=== PATIENT | male | born 1945 | race Caucasian/White ===

== ENCOUNTER 2016-11-28 17:34 | Emergency (ER) | payer MEDICARE, OTHER ==
[~2016-11-28 17:34] MED LIST: BEDSMIS4; BLOOD PRESSURE PILL PO; COLA100C PO; LOVA40TA PO; PERC10TA27 PO; PERI8.6T PO; WALKER ROLLING
[2016-11-28 17:36] VITALS: BP 174/81; PULSE 89; RESP 15; TEMP 98.4; O2SAT 98
--- NOTE | 2016-11-28 17:56 | PD ---
HPI Chief Complaint: Laceration/Skin Injury Time Seen by Provider: 17:55 Travel History International Travel<30 days: No Contact w/Intl Traveler<30days: No Traveled to known affect area: No History of Present Illness HPI 71yo M presents to the ER for c/o of left wrist laceration from a sprocket that hit him in the wrist very hard. Denies loss of sensation, paraesthesias, decreased ROM, decreased strength to effected extremity and hand. Unknown tetanus status. Has not taken any mediations for symptoms management. Talat anticoagulants. Has no other medical complaints. PFSH Past Medical History Cardiovascular Problems: Yes (htn on meds) High Cholesterol: Yes Hypertension: Yes Social History Alcohol Use: Yes (beer, occasionally) Tobacco Use: No (1989) Substance Use: No Allergies-Medications (Allergen,Severity, Reaction): Coded Allergies: No Known Allergies (Unverified , 11/28/16) Reported Meds & Prescriptions Reported Meds & Active Scripts Active Tylenol-Codeine #3 (Acetaminophen-Codeine) 300-30 mg Tab 1 Tab PO Q4H PRN Keflex (Cephalexin) 500 Mg Cap 500 Mg PO Q8H 7 Days Reported [Blood Pressure Pill] PO DAILY Review of Systems Except as stated in HPI: all other systems reviewed are Neg Physical Exam Narrative GENERAL: Well-nourished, well-developed male patient, in no acute distress SKIN: Warm and dry. Volar aspect of left wrist/ distal forearm with approximately 3.5 cm laceration; bleeding controlled. Left upper extremity is supple and non-tense with 2+ radial pulse and sensory intact; full range of motion to all fingers and full online advertising analyst strength. HEAD: Atraumatic. Normocephalic. EYES: Pupils equal and round. No scleral icterus. No injection or drainage. ENT: Mucosa pink and moist. Airway patent. NECK: Trachea midline. CARDIOVASCULAR: Regular rate. RESPIRATORY: No accessory muscle use. GASTROINTESTINAL: Flat. MUSCULOSKELETAL: No obvious deformities. No clubbing. No cyanosis. No edema. NEUROLOGICAL: Awake and alert. Oriented 3. No obvious cranial nerve deficits. Motor grossly within normal limits. Normal speech. PSYCHIATRIC: Appropriate mood and affect; insight and judgment normal. Data Data Last Documented VS Vital Signs Date Time Temp Pulse Resp B/P (MAP) Pulse Ox O2 Delivery O2 Flow Rate FiO2 11/28/16 23:50 11/28/16 20:26 18 11/28/16 17:36 98.4 89 98 Orders Orders Forearm (2vws) (11/28/16 17:53) Acetaminophen (Tylenol) (11/28/16 18:00) Lidocaine 1% Inj (50 Ml) (Xylocaine 1% I (11/28/16 18:00) Tetanus/Diphtheria Tox Adult (Tetanus/Di (11/28/16 18:00) Lidocai-Epi 1%-1:100,000 Inj (Xylocaine- (11/28/16 18:00) Ct Wrist W/O Contrast (11/28/16 ) Cefazolin 2 Gm Premix (Ancef 2 Gm Premix (11/28/16 23:00) Splint Or Brace Apply/Monitor (11/28/16 23:02) Acetamin-Hydrocod 325-5 Mg ([place] 5-325 (11/28/16 23:15) Ondansetron Odt (Zofran Odt) (11/28/16 23:15) Fiberglass Sugartong Sp Ad Arm (11/29/16 ) Sling Cradle Arm (11/29/16 ) MDM Medical Decision Making Medical Screen Exam Complete: Yes Emergency Medical Condition: Yes Medical Record Reviewed: Yes Differential Diagnosis laceration, contusion, fracture Narrative Course 71-year-old male with laceration to the volar aspect of his left distal forearm/ wrist. Tetanus updated in the ER. See my procedure note for laceration repair. Left forearm x-ray ordered. 1899: Left forearm x-ray pending. Report given to Derick Saunders, PAC at change of shift. See his note for patient final disposition. Procedures Procedure Narrative LACERATION LOCATION: Left distal forearm volar aspect LENGTH: 3-1/2 cm NUMBER OF STITCHES/MALORIE: 10 simple interrupted sutures REPAIR: The area of the laceration was prepped with Betadine and sterilely draped. The laceration was infiltrated with 1% lidocaine. The wound was copiously irrigated and explored without evidence of foreign body, tendon injury or neurovascular injury. The wound was closed using 4-0 Prolene. This was a single layer repair. A sterile dressing was applied. The patient was advised to keep the dressing clean and dry. Patient tolerated the procedure well. Diagnosis Primary Impression: Laceration of left forearm Qualified Codes: S51.812A - Laceration without foreign body of left forearm, initial encounter Referrals: Primary Care Physician Patient Instructions: Acute Wound Care (DC), Care For Your Stitches (ED), General Instructions, Laceration (ED) Additional Instructions: Keep area clean and dry Limit left arm activity to decrease risk of sutures coming undone Ibuprofen as directed and as needed for pain and inflammation; may alternate ibuprofen with the Lortabs for pain (Lortab contains Tylenol so do not take Tylenol with the Lortab, unless you take them 6-8 hours apart) Ice pack to area as needed to decrease pain Return to the emergency department or follow-up with her primary care provider in 10-14 days for suture removal Follow up with primary care provider within 2-4 days Return to the emergency department immediately with worsening of symptoms, particularly if reddened streaks up or down the affected extremity from the suture site, fever, numbness/tingling in the affected extremity, loss of sensation in the affected extremity, severe swelling of the affected Med/Other Pt SpecificInfo: Prescription(s) given Scripts Acetaminophen-Codeine (Tylenol-Codeine #3) 300-30 mg Tab 1 TAB PO Q4H Y for PAIN, #20 TAB 0 Refills Prov: Anna Costello MD 11/28/16 Cephalexin (Keflex) 500 Mg Cap 500 MG PO Q8H for Infection for 7 Days, CAP 0 Refills Prov: Kimberlyn Barrientos 11/28/16 Disposition: 01 DISCHARGE HOME Condition: Stable Kimberlyn Barrientos Nov 28, 2016 17:56
[2016-11-28] MEDS ORDERED: ACETAMINOPHEN 325 MG TAB PO ONE (18:00)
[2016-11-28] MEDS ORDERED: TETANUS/DIPHTHERIA TOXOID ADULT 0.5 ML VIAL IM ONE (18:00)
[2016-11-28] MEDS ORDERED: LIDOCAINE 1%/EPINEPHrine 1:100,000 SOLN 30 ML VIAL ONE (18:00)
[2016-11-28] MEDS ORDERED: LIDOCAINE HCL 1% 50 ML VIAL INFIL ONE (18:00)
[2016-11-28] MEDS ORDERED: CEPH-460 PO (18:54)
[2016-11-28] MEDS ORDERED: HYDR-3533 PO (18:57)
--- NOTE | 2016-11-28 20:04 | RADRPT ---
EXAM DATE/TIME: 11/28/2016 18:07 [facility] COMPARISON: No previous studies available for comparison. INDICATIONS : Left forearm laceration from tool. MEDICAL HISTORY : None. SURGICAL HISTORY : None. ENCOUNTER: Initial ACUITY: 1 day PAIN SCORE: 7/10 LOCATION: Left posterior forearm. FINDINGS: There is air in the soft tissues over the dorsal and lateral aspect of the wrist. Ther e does appear to be some fragmentation seen at the lateral aspect of the distal ulna. This could be from an acute injury or be related to hypertrophic change if this is not related to the patient's brittney saranya injury. There does appear to be prominent hypertrophic change at the first carpometacarpal join t. The elbow and wrist joints are grossly normally aligned. CONCLUSION: 1. Air in the soft tissues from laceration seen at the dorsal and lateral aspect of the wrist. 2. Fragmentation seen at the distal lateral aspect of the ulna. This could be from acute injury or b e the sequela of hypertrophic change if this is not an area of acute clinical concern. 3. Chronic change at the lateral wrist at the first carpometacarpal region. Davon Townsend MD on November 28, 2016 at 19:04 Board Certified Radiologist. This report was verified electronically.
--- NOTE | 2016-11-28 20:15 | PD ---
Physical Exam Time Seen by Provider: 20:05 Data Data Last Documented VS Vital Signs Date Time Temp Pulse Resp B/P (MAP) Pulse Ox O2 Delivery O2 Flow Rate FiO2 11/28/16 20:26 18 11/28/16 17:36 98.4 89 174/81 (112) 98 Orders Orders Forearm (2vws) (11/28/16 17:53) Acetaminophen (Tylenol) (11/28/16 18:00) Lidocaine 1% Inj (50 Ml) (Xylocaine 1% I (11/28/16 18:00) Tetanus/Diphtheria Tox Adult (Tetanus/Di (11/28/16 18:00) Lidocai-Epi 1%-1:100,000 Inj (Xylocaine- (11/28/16 18:00) Ct Wrist W/O Contrast (11/28/16 ) Cefazolin 2 Gm Premix (Ancef 2 Gm Premix (11/28/16 23:00) Splint Or Brace Apply/Monitor (11/28/16 23:02) Acetamin-Hydrocod 325-5 Mg ([employer] 5-325 (11/28/16 23:15) Ondansetron Odt (Zofran Odt) (11/28/16 23:15) MDM Medical Record Reviewed: Yes Supervised Visit with MARY: No Narrative Course I assumed care of this patient pending results from x-ray of the left forearm. Please see previous providers note for complete history of present illness as well as information on the laceration repair. 2010: The x-ray results have resulted revealing fracture fragment of the distal lateral ulna which could be acute versus chronic per the radiologist read. On examination he does have a laceration overlying the dorsal aspect of the left wrist as well as some mild tenderness in the region of the x-ray findings. Therefore a CT of the wrist has been ordered to assess the acuity of this bony injury. CT of the wrist reveals acute fracturing at the dorsal distal lateral ulna. Therefore the orthopedic physician dock operations supervisor will be paged. I discussed with the on-call orthopedist Dr. Musa who would like to see the patient in his office in the next few days and recommends oral antibiotics, sugar tong splint. The patient will be given a dose of IV Ancef prior to discharge. Diagnosis Primary Impression: Laceration of left forearm Qualified Codes: S51.812A - Laceration without foreign body of left forearm, initial encounter Additional Impression: Open fracture of left wrist Qualified Codes: S62.102B - Fracture of unspecified carpal bone, left wrist, initial encounter for open fracture Referrals: Salas Musa MD Primary Care Physician Patient Instructions: General Instructions, Care For Your Stitches (ED), Laceration (ED), Acute Wound Care (DC) Departure Forms: Tests/Procedures Additional Instruction: Follow-up with Dr. Musa in the next 3-4 days, call his office to make an appointment. Do not remove the splint. Tylenol with Codeine for pain. Do not drive or drink alcohol when using this medication. Keflex as prescribed. Return for any acutely new or worsening symptoms. Med/Other Pt SpecificInfo: Prescription(s) given, Wound Care, Orthopedic Instructions Scripts Acetaminophen-Codeine (Tylenol-Codeine #3) 300-30 mg Tab 1 TAB PO Q4H Y for PAIN, #20 TAB 0 Refills Prov: Anna Costello MD 11/28/16 Cephalexin (Keflex) 500 Mg Cap 500 MG PO Q8H for Infection for 7 Days, CAP 0 Refills Prov: Kimberlyn Barrientos 11/28/16 Disposition: 01 DISCHARGE HOME Condition: Stable Derick Saunders Nov 28, 2016 20:15
[2016-11-28 20:26] VITALS: RESP 18
--- NOTE | 2016-11-28 22:44 | RADRPT ---
EXAM DATE/TIME: 11/28/2016 20:51 [facility] COMPARISON: FOREARM LEFT (2VWS), November 28, 2016, 18:07. INDICATIONS : Laceration to left arm, struck by garage door motor. RADIATION DOSE: 6.34 CTDIvol (mGy) MEDICAL HISTORY : Hypertension. SURGICAL HISTORY : None. ENCOUNTER: Initial ACUITY: 1 day PAIN SCALE: 7/10 LOCATION: Left posterior forearm TECHNIQUE: Volumetric scanning of the wrist was performed. Using automated exposure control and adjustment of the mA and/or kV according to patient size, radiation dose was kept as low as reasonabl y achievable to obtain optimal diagnostic quality images. DICOM format image data is available elec tronically for review and comparison. FINDINGS: There is fracturing of the dorsal lateral aspect of the distal ulna. No other fracture is seen. There is prominent chronic degenerative change at the lateral carpal region and at the first carpometacarpal joint. There is extensive air within the soft tissues seen dorsally and laterally. There are small calcific densities or foreign material seen over the soft tissues just dorsal to the distal ulna. CONCLUSION: 1. Acute fracturing at the distal dorsal lateral ulna. The remaining bony structures are intact. 2. Prominent chronic change at the lateral aspect of the wrist and at the first carpometacarpal joint . 3. Extensive air within the soft tissues from laceration posteriorly. There is also some calcific de nsity or foreign material seen in the soft tissues over the dorsal medial wrist region. Davon Townsend MD on November 28, 2016 at 22:12 Board Certified Radiologist. This report was verified electronically.
[2016-11-28] MEDS ORDERED: ceFAZolin 2 GM PREMIX 50 ML IV ONE (23:00)
[2016-11-28] MEDS ORDERED: TYLETAB34 PO (23:05)
[2016-11-28] MEDS ORDERED: ACETAMINOPHEN/HYDROcodone 325 MG/5 MG TAB PO ONE (23:15)
[2016-11-28] MEDS ORDERED: ONDANSETRON ODT 4 MG TAB PO ONE (23:15)
== END 2016-11-28 23:53 | disposition home or self-care (01) ==
LOC: NEPK 17:34
DX: S62.102B Fracture of unspecified carpal bone, left wrist, initial encounter for open fracture (principal); S51.812A Laceration without foreign body of left forearm, initial encounter; W22.8XXA Striking against or struck by other objects, initial encounter; Z23 Encounter for immunization
CPT/HCPCS: 12002; 73090; 73200; 90471; 90714; 96365; 99285; J0690

== ENCOUNTER 2016-12-10 08:15 | Emergency (ER) | payer OTHER ==
[~2016-12-10] VITALS: Ht 175.3 cm; Wt 75.0 kg
[~2016-12-10 08:15] MED LIST changes: -BEDSMIS4; +CEPH-460 PO; -COLA100C PO; -LOVA40TA PO; -PERC10TA27 PO; -PERI8.6T PO; +TYLETAB34 PO; -WALKER ROLLING
[2016-12-10 08:17] VITALS: BP 132/68; PULSE 88; RESP 20; TEMP 97.7; O2SAT 97
[2016-12-10] MEDS ORDERED: BACT800T5 PO (08:44)
[2016-12-10] MEDS ORDERED: LISI10TA3 PO (08:44)
[2016-12-10] MEDS ORDERED: LOVA40TA PO (08:45)
[2016-12-10] MEDS ORDERED: KETOROLAC TROMETHAMINE 30 MG/ML (IVP) VIAL IV PUSH ONE (09:15)
[2016-12-10] MEDS ORDERED: SODIUM CHLORID 0.9% 500 ML INJ 500 ML IV ONE (09:15)
[2016-12-10 09:29] LABS: AUTOMATED NEUTROPHIL # 2.2 TH/MM3 (1.8-7.7); BASOPHIL % 0.3 % (0.0-2.0); EOSINOPHIL # 0.1 TH/MM3 (0-0.4); EOSINOPHIL % 2.3 % (0.0-4.0); HEMATOCRIT 40.5 % (39.0-51.0); HEMO FLAGS DIFF FINAL; LYMPH % 21.6 % (9.0-44.0); LYMPHOCYTE # 0.7 TH/MM3 (1.0-4.8); MEAN CELL VOLUME 83.7 FL (80.0-100.0); MEAN CORPUSCULAR HEMOGLOBIN 28.4 PG (27.0-34.0); MEAN CORPUSCULAR HGB CONC 33.9 % (32.0-36.0); MONO % 10.7 % (0.0-8.0); NEUT % 65.1 % (16.0-70.0); PLATELET COUNT 198 TH/MM3 (150-450); RED BLOOD COUNT 4.84 MIL/MM3 (4.50-5.90); RED CELL DISTRIBUTION WIDTH 13.2 % (11.6-17.2); WHITE BLOOD COUNT 3.4 TH/MM3 (4.0-11.0)
--- NOTE | 2016-12-10 09:32 | RADRPT ---
EXAM DATE/TIME: 12/10/2016 09:21 [facility] COMPARISON: CHEST PA & LAT, September 22, 2015, 20:29. INDICATIONS : Fever, shortness of breath, cough for 3 days. MEDICAL HISTORY : None. SURGICAL HISTORY : None. ENCOUNTER: Initial ACUITY: 3 days PAIN SCORE: 0/10 LOCATION: Bilateral chest FINDINGS: PA and lateral views of the chest demonstrate a normal-sized cardiac silhouette. There is no effusion , consolidation, or pneumothorax. The bones and soft tissues demonstrate no acute abnormality. CONCLUSION: No acute cardiopulmonary abnormality is identified. Davon Nicolas MD on December 10, 2016 at 9:30 Board Certified Radiologist. This report was verified electronically.
[2016-12-10 09:53] LABS: ALT (GPT) 31 U/L (12-78); ANION GAP 8 MEQ/L (5-15); AST (GOT) 26 U/L (15-37); BICARBONATE 25.1 MEQ/L (21.0-32.0); BLOOD UREA NITROGEN 17 MG/DL (7-18); CHLORIDE 97 MEQ/L (98-107); GLOMERULAR FILTRATION RATE 54 ML/MIN (>89); POTASSIUM 4.1 MEQ/L (3.5-5.1); SODIUM (NA) 130 MEQ/L (136-145)
[2016-12-10 09:56] LABS: ALKALINE PHOSPHATASE 106 U/L (45-117); TOTAL BILIRUBIN ADULT 0.6 MG/DL (0.2-1.0)
[2016-12-10 10:10] VITALS: BP 123/77; PULSE 81; RESP 16; TEMP 97.8; O2SAT 99
--- NOTE | 2016-12-10 10:50 | RADRPT ---
EXAM DATE/TIME: 12/10/2016 10:28 [facility] COMPARISON: CT WRIST LEFT W/O CONTRAST, November 28, 2016, 20:51. INDICATIONS : Patient had previous injury to left wrist. Still has wound that is sutured on posterior wrist. MEDICAL HISTORY : None. SURGICAL HISTORY : None. ENCOUNTER: Initial ACUITY: 1 week PAIN SCORE: 2/10 LOCATION: Left Wrist FINDINGS: 3 views of the left wrist demonstrate no acute fracture or dislocation. Ossific densities project pos terior to the distal radius and ulna on the lateral view and likely represent osseous fragments relat ed to the prior fracture. Carpal bones are intact. There is moderate osteoarthritis at the first carp ometacarpal joint with joint space narrowing, subluxation, and osteophytes. There is mild soft tissue swelling around the wrist. No concerning radiopaque foreign body is seen. CONCLUSION: 1. No acute fracture is identified. Ossific densities posterior to the distal ulna likely represent s mall osseous fragments documented previously. No concerning radiopaque foreign body is identified. 2. Moderate severity osteoarthritis at the first CMC joint. Davon Nicolas MD on December 10, 2016 at 10:45 Board Certified Radiologist. This report was verified electronically.
--- NOTE | 2016-12-10 11:22 | PD ---
HPI Chief Complaint: Skin Problem Time Seen by Provider: 08:53 Travel History International Travel<30 days: No Contact w/Intl Traveler<30days: No Traveled to known affect area: No History of Present Illness HPI He shouldn't is a 71-year-old male who comes in complaining of fever. He has a laceration to his left wrist, which she sustained about 2 weeks ago. It was repaired and there was evidence of possibly a small fracture to the area. He has been seen by orthopedics twice since then, most recently on . Per , when he saw orthopedics on they said it was healing well. He was given Bactrim from them. He was on Keflex previously. He says he developed a fever about 2 days ago. He has had a cough. He does report occasional shortness of breath, mostly at night. He denies any pain to the wrist. He has not noticed any oozing from his wound. He denies any chest pain. He has not had any abdominal pain, nausea or vomiting. PFSH Past Medical History Cardiovascular Problems: Yes (htn on meds) High Cholesterol: Yes Hypertension: Yes Social History Alcohol Use: Yes (beer, occasionally) Tobacco Use: No (QUIT 1989) Substance Use: No Allergies-Medications (Allergen,Severity, Reaction): Coded Allergies: No Known Allergies (Unverified , 12/10/16) Reported Meds & Prescriptions Reported Meds & Active Scripts Active Tylenol-Codeine #3 (Acetaminophen-Codeine) 300-30 mg Tab 1 Tab PO Q4H PRN Reported Lovastatin 40 Mg Tab 40 Mg PO DAILY Lisinopril 10 Mg Tab 10 Mg PO DAILY Bactrim DS (Sulfamethoxazole-Trimethoprim) 800-160 Mg Tab 1 Tab PO BID Review of Systems Except as stated in HPI: all other systems reviewed are Neg General / Constitutional: Positive: Fever, Chills HENT: Positive: Headaches Cardiovascular: No: Chest Pain or Discomfort Respiratory: Positive: Cough Gastrointestinal: No: Nausea, Vomiting Musculoskeletal: No: Myalgias, Edema, Pain Skin: No Rash, No Change in Pigmentation Neurologic: No: Weakness, Dizziness Physical Exam Narrative GENERAL: Awake and alert, in no acute distress. SKIN: Focused skin assessment warm/dry. Well healing wound on the dorsal side of the left wrist, mild erythema surrounding the sutures. There is no oozing from the wound. HEAD: Atraumatic. Normocephalic. EYES: Pupils equal and round. No scleral icterus. No injection or drainage. ENT: No nasal bleeding or discharge. Mucous membranes pink and moist. NECK: Trachea midline. No JVD. CARDIOVASCULAR: Regular rate and rhythm. No murmur appreciated. RESPIRATORY: No accessory muscle use. Clear to auscultation. Breath sounds equal bilaterally. GASTROINTESTINAL: Abdomen soft, non-tender, nondistended. MUSCULOSKELETAL: No obvious deformities. No clubbing. No cyanosis. No edema. No tenderness to palpation to the wrist or around the wound. NEUROLOGICAL: Awake and alert. No obvious cranial nerve deficits. Motor grossly within normal limits. Normal speech. PSYCHIATRIC: Appropriate mood and affect; insight and judgment normal. Data Data Last Documented VS Vital Signs Date Time Temp Pulse Resp B/P (MAP) Pulse Ox O2 Delivery O2 Flow Rate FiO2 12/10/16 10:10 97.8 81 16 123/77 (92) 99 Room Air Orders Orders Iv Access Insert/Monitor (12/10/16 09:10) Complete Blood Count With Diff (12/10/16 09:10) Comprehensive Metabolic Panel (12/10/16 09:10) Westergren Sedimentation Rate (12/10/16 09:10) Influenzae A/B Antigen (12/10/16 09:10) Chest, Pa & Lat (12/10/16 ) Sodium Chlorid 0.9% 500 Ml Inj (Ns 500 M (12/10/16 09:15) Ketorolac Inj (Toradol Inj) (12/10/16 09:15) Wrist, Complete ([id number]) (12/10/16 ) Labs Laboratory Tests Test 12/10/16 09:20 White Blood Count 3.4 TH/MM3 Red Blood Count 4.84 MIL/MM3 Hemoglobin 13.7 GM/DL Hematocrit 40.5 % Mean Corpuscular Volume 83.7 FL Mean Corpuscular Hemoglobin 28.4 PG Mean Corpuscular Hemoglobin Concent 33.9 % Red Cell Distribution Width 13.2 % Platelet Count 198 TH/MM3 Mean Platelet Volume 8.2 FL Neutrophils (%) (Auto) 65.1 % Lymphocytes (%) (Auto) 21.6 % Monocytes (%) (Auto) 10.7 % Eosinophils (%) (Auto) 2.3 % Basophils (%) (Auto) 0.3 % Neutrophils # (Auto) 2.2 TH/MM3 Lymphocytes # (Auto) 0.7 TH/MM3 Monocytes # (Auto) 0.4 TH/MM3 Eosinophils # (Auto) 0.1 TH/MM3 Basophils # (Auto) 0.0 TH/MM3 CBC Comment DIFF FINAL Differential Comment Erythrocyte Sedimentation Rate 25 mm/hr Blood Urea Nitrogen 17 MG/DL Creatinine 1.31 MG/DL Random Glucose 108 MG/DL Total Protein 7.4 GM/DL Albumin 3.7 GM/DL Calcium Level 8.7 MG/DL Alkaline Phosphatase 106 U/L Aspartate Amino Transf (AST/SGOT) 26 U/L Alanine Aminotransferase (ALT/SGPT) 31 U/L Total Bilirubin 0.6 MG/DL Sodium Level 130 MEQ/L Potassium Level 4.1 MEQ/L Chloride Level 97 MEQ/L Carbon Dioxide Level 25.1 MEQ/L Anion Gap 8 MEQ/L Estimat Glomerular Filtration Rate 54 ML/MIN MDM Medical Decision Making Medical Screen Exam Complete: Yes Emergency Medical Condition: Yes Medical Record Reviewed: Yes Differential Diagnosis Viral illness versus influenza versus pneumonia versus bronchitis versus cellulitis Narrative Course Patient is a 8-year-old male comes in complaining of fever. He does have a healing laceration to his left wrist, but this does not appear infected and is not tender to palpation. IV established, labs sent. Labs show no real acute abnormalities. ESR slightly elevated 25, but this is likely due to his age. X- ray of the wrist shows no acute abnormalities, bone is healing. Patient given IV fluids and a dose of Toradol. He reports feeling better. X-ray performed shows no evidence of pneumonia. Patient will be discharged with a prescription for Levaquin to cover his skin as well as anything that may be developing in his lungs. He has a follow-up appointment on Monday with orthopedics. He is advised to keep this appointment. Advised to return any time for any worsening symptoms. Diagnosis Primary Impression: Bronchitis Patient Instructions: Acute Bronchitis (ED), Cellulitis (ED), General Instructions Additional Instructions: Take all of your antibiotic. Make sure to drink plenty of fluids. Take Tylenol or ibuprofen as needed for pain or fever. Follow-up with orthopedics. Return to the ED as needed for any worsening symptoms. Scripts Levofloxacin (Levaquin) 750 Mg Tablet 750 MG PO DAILY for Infection for 7 Days, TAB 0 Refills Prov: Anna Costello MD 12/10/16 Disposition: 01 DISCHARGE HOME Condition: Stable Anna Costello MD Dec 10, 2016 11:22
[2016-12-10] MEDS ORDERED: LEVA750T9 PO (11:30)
[2016-12-10 11:32] VITALS: BP 122/83; TEMP 97.8
== END 2016-12-10 11:35 | disposition home or self-care (01) ==
LOC: NEPC 08:15
DX: J40 Bronchitis, not specified as acute or chronic (principal); R51 Headache; I10 Essential (primary) hypertension; E78.00 Pure hypercholesterolemia, unspecified; Z79.899 Other long term (current) drug therapy
CPT/HCPCS: 71020; 73110; 80053; 85025; 85652; 87804; 96361; 96374; 99284; J1885; J7040